=== PATIENT | female | born 1975 | race Caucasian/White ===

== ENCOUNTER 2017-08-16 17:26 | Emergency (ER) | payer OTHER ==
[~2017-08-16] VITALS: Ht 165.1 cm; Wt 112.4 kg
[~2017-08-16 17:26] MED LIST: OXYC-57 PO; PANT40TA PO
[2017-08-16 17:34] VITALS: TEMP 36.9; Ht 165.1 cm; Wt 112.4 kg
[2017-08-16] MEDS ORDERED: ACET-1256 PO (18:17)
[2017-08-16] MEDS ORDERED: IBUP-103 PO (18:17)
--- NOTE | 2017-08-16 18:20 | DIAGNOSTIC IMAGING REPORT ---
LEFT ANKLE 3 VIEWS HISTORY: Left lower extremity swelling. COMPARISON: None. FINDINGS: There is no fracture or dislocation. Diffuse soft tissue swelling. No radiopaque foreign bodies. IMPRESSION: No fractures. Diffuse soft tissue swelling. Electronically signed by: Juan Miguel Rayo M.D. 08/16/2017 6:19 PM Dictated Date/Time: 08/16/2017 6:18 PM
--- NOTE | 2017-08-16 18:20 | DIAGNOSTIC IMAGING REPORT ---
LEFT FOOT 3 VIEWS CLINICAL HISTORY: Left foot pain. FINDINGS: 3 views of the left foot are obtained. No prior studies are available for comparison at the time of dictation. The skeletal structures are well mineralized. No fracture is seen. The joint spaces of the foot are well-maintained. Soft tissue edema is seen along the dorsal aspect of the foot. IMPRESSION: Soft tissue swelling with no radiographic evidence of left foot fracture. Electronically signed by: Peterson Jasso M.D. 08/16/2017 6:19 PM Dictated Date/Time: 08/16/2017 6:18 PM
--- NOTE | 2017-08-16 18:37 | DIAGNOSTIC IMAGING REPORT ---
ULTRASOUND LEFT LOWER EXTREMITY VENOUS CLINICAL HISTORY: Left leg swelling. COMPARISON STUDY: No priors. TECHNIQUE: Real-time, grayscale, and color Doppler sonography of the deep veins of the left lower extremity was performed from the inguinal crease to the calf. Compression and augmentation were utilized. FINDINGS: There is no sonographic evidence of deep venous thrombosis identified in the left lower extremity. The common femoral, superficial femoral, and popliteal veins are patent and normally compressible. The greater saphenous vein and the profunda femoris vein at the junction with the common femoral vein are clear. The visualized calf veins are patent. IMPRESSION: There is no sonographic evidence of deep venous thrombosis identified in the left lower extremity. Electronically signed by: Peterson Jasso M.D. 08/16/2017 6:36 PM Dictated Date/Time: 08/16/2017 6:36 PM
[2017-08-16 19:00] VITALS: BP 139/82; PULSE 89; O2SAT 96
--- NOTE | 2017-08-16 19:32 | EMERGENCY ROOM VISIT NOTE ---
History Report prepared by [employer]: Sergio Graham Under the Supervision of: Dr. Chance Oliva D.O. First contact with patient: 17:39 Chief Complaint: ANKLE PAIN Stated Complaint: LEFT ANKLE PAIN/SWELLING History of Present Illness The patient is a 42 year old female who presents to the Emergency Room with complaints of waxing and waning left ankle swelling and pain beginning five days ago. The patient rates her pain as a 6//10 in severity. She localizes the majority pain to her left heel while walking. She states that her foot swelling is causing discomfort over the top of her foot as well. The patient notes that she got a tattoo to her left bunn one week ago. She notes that her foot is not swollen when she wakes up, but swells throughout the day. She denies any erythema or induration. Pt denies headache, change in vision, fevers, cough, chest pain, shortness of breath, nausea, vomiting, diarrhea, pain with urination , and melena. Source of History: patient Onset: Five days ago Position: ankle (left) Symptom Intensity: 6/10 Quality: other (swelling) Timing: waxes/wanes Modifying Factors (Worsening): other (throughout day) Associated Symptoms: No fevers, No headache, No cough, No chest pain, No SOB , No nausea, No vomiting, No abdominal pain, No diarrhea, No urinary symptoms Review of Systems See HPI for pertinent positives & negatives. A total of 10 systems reviewed and were otherwise negative. Past Medical & Surgical Medical Problems: (1) No Known Active Medical Problems Family History No pertinent family history stated. Social History Smoking Status: Never Smoker Current/Historical Medications Scheduled PRN Acetaminophen (Tylenol), 1,000 MG PO UD PRN for Pain Ibuprofen Tab (Advil), 400-600 MG PO Q6H PRN for Pain Allergies Coded Allergies: No Known Allergies (Unverified , 08/16/17) Physical Exam Vital Signs Date Time Temp Pulse Resp B/P (MAP) Pulse Ox O2 Delivery O2 Flow Rate FiO2 08/16/17 19:00 89 20 139/82 96 08/16/17 17:34 36.9 86 17 128/81 95 Room Air Physical Exam GENERAL: Sitting up in bed, alert, well appearing, well nourished, no distress, non-toxic EYE EXAM: normal conjunctiva. OROPHARYNX: no exudate, no erythema, lips, buccal mucosa, and tongue normal and mucous membranes are moist NECK: supple, no nuchal rigidity, no adenopathy, non-tender LUNGS: Clear to auscultation. Normal chest wall mechanics HEART: no murmurs, S1 normal and S2 normal ABDOMEN: abdomen soft, non-tender, normo-active bowel sounds, no masses, no rebound or guarding. BACK: Back is symmetrical on inspection and there is no deformity, no midline tenderness, no CVA tenderness. SKIN: no rashes and no bruising UPPER EXTREMITIES: upper extremities are grossly normal. LOWER EXTREMITIES: Left ankle larger than right without erythema or induration. Full ROM of the ankle without tenderness. Minimal tenderness at the base of the calcaneus. Faint erythema around new tattoo on the left lateral bunn. DP's 2/4. No swelling of the calf. NEURO EXAM: Normal sensorium, cranial nerves II-XII grossly intact, normal speech, no gross weakness of arms, no gross weakness of legs. Medical Decision & Procedures ER Provider Diagnostic Interpretation: Radiology results as stated below per my review and the radiologist's interpretation: ULTRASOUND LEFT LOWER EXTREMITY VENOUS FINDINGS: There is no sonographic evidence of deep venous thrombosis identified in the left lower extremity. The common femoral, superficial femoral, and popliteal veins are patent and normally compressible. The greater saphenous vein and the profunda femoris vein at the junction with the common femoral vein are clear. The visualized calf veins are patent. IMPRESSION: There is no sonographic evidence of deep venous thrombosis identified in the left lower extremity. Electronically signed by: Peterson Jasso M.D. 08/16/2017 6:36 PM LEFT FOOT 3 VIEWS FINDINGS: 3 views of the left foot are obtained. No prior studies are available for comparison at the time of dictation. The skeletal structures are well mineralized. No fracture is seen. The joint spaces of the foot are well-maintained. Soft tissue edema is seen along the dorsal aspect of the foot. IMPRESSION: Soft tissue swelling with no radiographic evidence of left foot fracture. Electronically signed by: Peterson Jasso M.D. 08/16/2017 6:19 PM LEFT ANKLE 3 VIEWS FINDINGS: There is no fracture or dislocation. Diffuse soft tissue swelling. No radiopaque foreign bodies. IMPRESSION: No fractures. Diffuse soft tissue swelling. Electronically signed by: Juan Miguel Rayo M.D. 08/16/2017 6:19 PM ED Course ED COURSE: Vital signs were reviewed and appeared normal. The patients medical record was reviewed The above diagnostic studies were performed and reviewed. ED treatments and interventions as stated above. 1741: The patient was evaluated in room C10. A complete history and physical examination was performed. 1855: Upon reevaluation, the patient is resting comfortably. I discussed my findings with the patient and she understands and agrees with the treatment plan. Based on the patients age, coexisting illnesses, exam and lab findings the decision to treat as an outpatient was made. The patient remained stable while under my care. The patient appeared well at the time of discharge. Medical Decision Differential diagnosis includes etiologies such as cellulitis, abscess, MRSA infection, DVT, necrotizing fasciitis, dermatitis, drug eruption, as well as others were entertained. Patient is a 42-year-old female that presents to the ER for swelling of the left ankle. There is no induration or erythema. No signs of infection. Full range of motion of the ankle. Nothing to suggest that this is infected. Vitals are stable. Afebrile. Recent tattoo above without erythema. Swelling improved significantly with elevation. Duplex shows no clots. X-rays without fractures. Question if this is secondary to the tattoo causing dependent edema which I do favor. Patient was updated at bedside instructed to follow-up with PCP in the next 2 days. No chest pain or shortness of breath. Nothing to suggest CHF. Lungs were clear. Discussed with Pt concerning signs and symptoms to watch out for. Pt was instructed to follow up with their PCP and discussed with the patient their option to return to the ED at anytime for persistent or worsening symptoms. The appropriate anticipatory guidance and out-patient management, including indications for return to the emergency department, were explained at length to the patient and understood. Medication Reconcilliation Current Medication List: was personally reviewed by me Blood Pressure Screening Patient's blood pressure: Normal blood pressure Blood pressure disposition: Did not require urgent referral Impression Primary Impression: Ankle swelling Scribe Attestation The scribe's documentation has been prepared under my direction and personally reviewed by me in its entirety. I confirm that the note above accurately reflects all work, treatment, procedures, and medical decision making performed by me. Departure Information Dispostion Home / Self-Care Referrals Indu Marina M.D. (PCP) Forms HOME CARE DOCUMENTATION FORM, IMPORTANT VISIT INFORMATION Patient Instructions ED Leg Swelling Unilateral, My [facility] Additional Instructions Please follow up with your primary care doctor with in the next 24 hours. Any worsening of your symptoms, please return to the ED immediately. This includes any fevers greater than 100.4, redness, increased swelling, worsening pain, chest pain, shortness breath, persistent nausea, vomiting, unable to eat or drink, or any other concerning signs or symptoms from your standpoint. Please try to wear compression stockings and keep your left foot elevated when possible. Please use Motrin or Tylenol as needed for pain. Problem Qualifiers Primary Impression: Ankle swelling Laterality: unspecified laterality Qualified Codes: M25.473 - Effusion, unspecified ankle
== END 2017-08-16 19:00 | disposition home or self-care (01) ==
LOC: C.EDB 17:28 → C.EDC 19:00
DX: M25.472 Effusion, left ankle (principal); M25.572 Pain in left ankle and joints of left foot

== ENCOUNTER → 2017-12-20 | Outpatient (CLI) | payer OTHER ==
[~2017-12-20] MED LIST changes: +ACET-1256 PO; +IBUP-103 PO; -OXYC-57 PO; -PANT40TA PO
== END | disposition home or self-care (01) ==
LOC: C.RDSM 09:50
PROVIDERS: ATTEND Orthopaedic Surgery Sports Medicine
DX: M25.511 Pain in right shoulder (principal)